=== PATIENT | male | born 1985 | race Two or more races ===

== ENCOUNTER 2025-06-12 16:52 | Emergency (ER) | payer MEDICAID ==
[~2025-06-12] VITALS: Ht 172.7 cm; Wt 81.6 kg
[2025-06-12 17:00] VITALS: TEMP 98.6
[2025-06-12] MEDS ORDERED: LEVETIRACETAM (500MG) 1,000 MG in IV NS 0.9% 90 ML IV SCH (18:30)
[2025-06-12] MEDS ORDERED: IBUP-1953 PO (19:33)
[2025-06-12 20:17] VITALS: BP 155/88; O2SAT 99
== END 2025-06-12 20:17 | disposition home or self-care (01) ==
LOC: ER 17:00
DX: F10.129 Alcohol abuse with intoxication, unspecified (principal); S00.83XA Contusion of other part of head, initial encounter; R23.3 Spontaneous ecchymoses; F17.200 Nicotine dependence, unspecified, uncomplicated; I10 Essential (primary) hypertension; Z79.899 Other long term (current) drug therapy; Y90.9 Presence of alcohol in blood, level not specified
CPT/HCPCS: 99284; 70450; 70486; J7030; J1953